=== PATIENT | male | born 1970 | race Caucasian/White ===

== ENCOUNTER 2017-01-27 08:14 | Emergency (ER) | payer BC ==
[~2017-01-27] VITALS: Ht 193 cm; Wt 96.0 kg
[~2017-01-27 08:14] MED LIST: CLEOCIN300 MG PO; COLACE100 MG PO; ENDOCET 5-3251 EACH PO; FLAGYL250 MG PO; GLIPIZIDE10 MG PO; GLIPIZIDE5 MG PO; GLUCOTROL10 MG PO; GLUCOTROL5 MG PO; KEFLEX500 MG PO; LEVAQUIN500 MG PO; LISINOPRIL5 MG PO; LOFIBRA,TRIGLI160 MG PO; LORTAB 5-325 M1 EACH PO; METFORMIN HCL1000 MG PO; PERCOCET 5/31 TABLET PO; PRAVASTATIN SOD40 MG PO; PRINIVIL5 MG PO; ROCEPHIN IV; ROCEPHIN2 GM/50 ML IV; TAMIFLU75 MG PO; TYLENOL EXTRA500 MG PO; VANCOMYCIN1 GM/150 M IV; ZYVOX600 MG PO
[2017-01-27 10:36] LABS: EOSINOPHIL (%) 2.3 % (0-5); EOSINOPHIL COUNT 0.1 K/uL (0-0.3); HEMATOCRIT 42.1 % (38.0-50.0); IMMATURE GRANULOCYTE (%) 0.4 % (0.0-0.7); INSTRUMENT ABS NEUTROPHIL CT 3.4 K/uL; LYMPHOCYTE COUNT 0.7 K/uL (1.0-2.8); MCH 29.1 PG (29.0-34.0); MCV 88.1 FL (86-99); MEAN PLAT.VOLUME 10.1 uM^3 (9.0-12.4); MONOCYTE (%) 9.7 % (3-12); MONOCYTE COUNT 0.5 K/uL (0-0.8); NEUTROPHIL (%) 72.4 % (45-76); NEUTROPHIL COUNT 3.4 K/uL (1.8-6.4); PLATELET COUNT 232 K/uL (156-360); RBC DIS.WIDTH-CV 11.5 % (11.8-14.6); RBC DIS.WIDTH-SD 37.1 % (39-53); RED BLOOD COUNT 4.78 M/uL (4.00-5.50); WHITE BLOOD COUNT 4.7 K/uL (4.1-10.2)
[2017-01-27 10:45] LABS: CHLORIDE 100 mEq/L (99-109); POTASSIUM 4.3 mEq/L (3.7-5.4); SODIUM 135 mEq/L (136-147)
[2017-01-27 10:47] LABS: GLUCOSE 344 mg/dL (70-99)
[2017-01-27 10:48] LABS: ANION GAP 10 MEQ/L (2-14)
[2017-01-27 10:51] LABS: GFR ESTIMATE (CALCULATED) > 59 mL/min/
[2017-01-27 10:52] LABS: UREA NITROGEN (BUN) 15 mg/dL (9-23)
[2017-01-27 13:48] VITALS: BP 135/95
== END 2017-01-27 13:48 | disposition home or self-care (01) ==
LOC: EME 08:14
PROVIDERS: Physician Assistant
DX: E11.621 Type 2 diabetes mellitus with foot ulcer (principal); L97.519 Non-pressure chronic ulcer of other part of right foot with unspecified severity; Z86.14 Personal history of Methicillin resistant Staphylococcus aureus infection; Z89.429 Acquired absence of other toe(s), unspecified side; Z88.0 Allergy status to penicillin; Z88.2 Allergy status to sulfonamides
CPT/HCPCS: 73630; 80048; 85025; 99281; 99284; J7050

== ENCOUNTER 2017-03-24 11:06 | Inpatient (IN) | payer BC ==
[~2017-03-24] VITALS: Ht 193 cm; Wt 91.2 kg
[2017-03-24 11:31] LABS: POINT-OF-CARE METER ID UU13113778
[2017-03-24 12:00] LABS: HEMATOCRIT 36.9 % (38.0-50.0); MCH 29.4 PG (29.0-34.0); MCHC 33.6 G/DL (30.0-36.0); MCV 87.4 FL (86-99); MEAN PLAT.VOLUME 9.8 uM^3 (9.0-12.4); PLATELET COUNT 265 K/uL (156-360); RBC DIS.WIDTH-CV 11.9 % (11.8-14.6); RBC DIS.WIDTH-SD 38.5 % (39-53); RED BLOOD COUNT 4.22 M/uL (4.00-5.50); WHITE BLOOD COUNT 7.6 K/uL (4.1-10.2)
[2017-03-24 12:30] LABS: CHLORIDE 100 mEq/L (99-109); POTASSIUM 3.8 mEq/L (3.7-5.4); SODIUM 134 mEq/L (136-147)
[2017-03-24 12:33] LABS: GLUCOSE 267 mg/dL (70-99)
[2017-03-24 12:34] LABS: ANION GAP 21 MEQ/L (2-14)
[2017-03-24 12:35] LABS: TOTAL BILIRUBIN 0.4 mg/dL (0.0-1.0)
[2017-03-24 12:36] LABS: ALKALINE PHOSPHATASE 108 IU/L (3-129); GFR ESTIMATE (CALCULATED) > 59 mL/min/
[2017-03-24 12:37] LABS: UREA NITROGEN (BUN) 17 mg/dL (9-23)
[2017-03-24 13:53] LABS: SAMPLE HEMOLYSIS CHECK 0; SAMPLE ICTERIC CHECK 0; SAMPLE LIPEMIA CHECK 0
[2017-03-24 14:07] LABS: CARBON DIOXIDE (BICARBONATE) 15.8 MEQ/L (20-31)
[2017-03-24 16:56] LABS: CHLORIDE 104 mEq/L (99-109); POTASSIUM 4.2 mEq/L (3.7-5.4); SODIUM 135 mEq/L (136-147)
[2017-03-24 16:57] LABS: GLUCOSE 249 mg/dL (70-99)
[2017-03-24 16:59] LABS: ANION GAP 17 MEQ/L (2-14)
[2017-03-24] MEDS ORDERED: TYLENOL EXTRA500 MG PO (17:00)
[2017-03-24 17:01] LABS: GFR ESTIMATE (CALCULATED) > 59 mL/min/
[2017-03-24 17:02] LABS: UREA NITROGEN (BUN) 15 mg/dL (9-23)
[2017-03-24 19:00] LABS: ADD MIUA? NO; BILIRUBIN NEGATIVE; BLOOD NEGATIVE; COLOR YELLOW ((YELLOW)); GLUCOSE (STRIP) >=500; KETONES 80; LEUKOCYTES NEGATIVE; NITRITE NEGATIVE; PROTEIN (STRIP) 30; SPECIFIC GRAVITY 1.023 (1.000-1.030); UCUL ADDED? NO; UROBILINOGEN 0.2 MG/DL (0.2-1.0)
[2017-03-24 19:58] LABS: ALKALINE PHOSPHATASE 89 IU/L (3-129)
[2017-03-24 20:01] LABS: DIRECT BILIRUBIN 0.2 mg/dL (0.0-0.3)
[2017-03-24 20:02] LABS: LIPASE 9 U/L (1.0-51.0)
[2017-03-24 20:03] LABS: TOTAL BILIRUBIN 0.2 mg/dL (0.0-1.0)
[2017-03-24 20:30] VITALS: BP 138/77
[2017-03-24 20:44] LABS: C-REACTIVE PROTEIN 157.6 MG/L (0-10)
[2017-03-24 20:46] LABS: ERTH.SED.RATE 113 MM/HR (0-15)
[2017-03-24 21:14] VITALS: BP 138/77
[2017-03-24 21:24] LABS: ANION GAP 17 MEQ/L (2-14); CHLORIDE 104 MEQ/L (99-109); GFR ESTIMATE (CALCULATED) > 59 mL/min/; GLUCOSE 218 mg/dL (70-99); POTASSIUM 4.2 MEQ/L (3.7-5.4); SAMPLE HEMOLYSIS CHECK 0; SAMPLE ICTERIC CHECK 0; SAMPLE LIPEMIA CHECK 0; SODIUM 134 MEQ/L (136-147); UREA NITROGEN (BUN) 14 mg/dL (9-23)
[2017-03-24 21:31] LABS: Estimated Average Glucose 272 mg/dL (70-123); HEMOGLOBIN A1c (GLYCOHEMOGLOB) 11.1 % HGB (Below 5.7)
[2017-03-24 21:41] LABS: POINT-OF-CARE METER ID UU13113781
[2017-03-24 22:41] LABS: METH RESISTANT S AUREUS PCR NEGATIVE (NEGATIVE)
[2017-03-24 22:47] LABS: PROBE CHECK PASS; SPECIMEN PROCESSING CONTROL PASS
[2017-03-24 22:59] LABS: BASE EXCESS -10.3 mEq/L (-3 to +3); BICARBONATE 13.3 mEq/L (22-26); COMMENTS - BLOOD GASES C+; METHEMOGLOBIN 0.9 % (0-1.5); MODE ROOM AIR; PCO2 23 mm Hg (35-45); PO2 95 mm Hg (80-100); SITE LR; TOTAL RESP RATE 20 resp/min; pH 7.37 (7.35-7.45)
[2017-03-24 23:55] VITALS: BP 122/63
[2017-03-25 04:00] VITALS: BP 137/79
[2017-03-25 05:25] LABS: EOSINOPHIL (%) 0.2 % (0-5); HEMATOCRIT 31.2 % (38.0-50.0); IMMATURE GRANULOCYTE (%) 0.7 % (0.0-0.7); INSTRUMENT ABS NEUTROPHIL CT 3.6 K/uL; LYMPHOCYTE COUNT 0.4 K/uL (1.0-2.8); MCH 29.8 PG (29.0-34.0); MCHC 33.3 G/DL (30.0-36.0); MCV 89.4 FL (86-99); MEAN PLAT.VOLUME 9.9 uM^3 (9.0-12.4); MONOCYTE (%) 8.1 % (3-12); MONOCYTE COUNT 0.4 K/uL (0-0.8); NEUTROPHIL (%) 81.4 % (45-76); NEUTROPHIL COUNT 3.6 K/uL (1.8-6.4); PLATELET COUNT 226 K/uL (156-360); RBC DIS.WIDTH-CV 12.2 % (11.8-14.6); RBC DIS.WIDTH-SD 39.3 % (39-53); RED BLOOD COUNT 3.49 M/uL (4.00-5.50); WHITE BLOOD COUNT 4.5 K/uL (4.1-10.2)
[2017-03-25 05:35] LABS: ANION GAP 13 MEQ/L (2-14); CHLORIDE 107 MEQ/L (99-109); GFR ESTIMATE (CALCULATED) > 59 mL/min/; GLUCOSE 168 mg/dL (70-99); POTASSIUM 4.2 MEQ/L (3.7-5.4); SAMPLE HEMOLYSIS CHECK 0; SAMPLE ICTERIC CHECK 0; SAMPLE LIPEMIA CHECK 0; SODIUM 135 MEQ/L (136-147); UREA NITROGEN (BUN) 12 mg/dL (9-23)
[2017-03-25 08:14] VITALS: BP 128/68
[2017-03-25 11:48] LABS: POINT-OF-CARE USER ID ENVKC36
[2017-03-25 12:47] VITALS: BP 137/73
[2017-03-25 14:44] LABS: POINT-OF-CARE METER ID UU13113803; POINT-OF-CARE USER ID ENVKC36
[2017-03-25 17:07] VITALS: BP 119/58
[2017-03-25 18:04] LABS: POINT-OF-CARE USER ID ENVKC36
[2017-03-25 20:00] VITALS: BP 137/67
[2017-03-25 23:55] VITALS: BP 149/86
[2017-03-26 02:24] LABS: POINT-OF-CARE METER ID UU13113675
[2017-03-26 02:49] VITALS: BP 154/76
[2017-03-26 04:00] VITALS: BP 147/72
[2017-03-26 07:14] LABS: EOSINOPHIL (%) 2.1 % (0-5); EOSINOPHIL COUNT 0.1 K/uL (0-0.3); HEMATOCRIT 30.5 % (38.0-50.0); IMMATURE GRANULOCYTE (%) 0.9 % (0.0-0.7); INSTRUMENT ABS NEUTROPHIL CT 2.4 K/uL; LYMPHOCYTE COUNT 0.4 K/uL (1.0-2.8); MCH 29.1 PG (29.0-34.0); MCHC 33.4 G/DL (30.0-36.0); MCV 86.9 FL (86-99); MEAN PLAT.VOLUME 9.5 uM^3 (9.0-12.4); MONOCYTE (%) 13.1 % (3-12); MONOCYTE COUNT 0.4 K/uL (0-0.8); NEUTROPHIL COUNT 2.4 K/uL (1.8-6.4); PLATELET COUNT 227 K/uL (156-360); RBC DIS.WIDTH-CV 11.9 % (11.8-14.6); RBC DIS.WIDTH-SD 38.5 % (39-53); RED BLOOD COUNT 3.51 M/uL (4.00-5.50); WHITE BLOOD COUNT 3.4 K/uL (4.1-10.2)
[2017-03-26 07:26] LABS: POINT-OF-CARE METER ID UU13113781
[2017-03-26 07:45] LABS: ANION GAP 8 MEQ/L (2-14); CHLORIDE 103 MEQ/L (99-109); GFR ESTIMATE (CALCULATED) > 59 mL/min/; GLUCOSE 155 mg/dL (70-99); POTASSIUM 3.5 MEQ/L (3.7-5.4); SAMPLE HEMOLYSIS CHECK 0; SAMPLE ICTERIC CHECK 0; SAMPLE LIPEMIA CHECK 0; SODIUM 133 MEQ/L (136-147); UREA NITROGEN (BUN) 8 mg/dL (9-23)
[2017-03-26 07:57] VITALS: BP 145/77
[2017-03-26 10:23] LABS: POINT-OF-CARE METER ID UU13113781
[2017-03-26 11:27] VITALS: BP 122/68
[2017-03-26 14:15] LABS: POINT-OF-CARE METER ID UU13113698
[2017-03-26 20:00] VITALS: BP 118/58
[2017-03-26 23:55] VITALS: BP 133/71
[2017-03-27 04:00] VITALS: BP 133/74
[2017-03-27 05:52] LABS: HEMATOCRIT 33.4 % (38.0-50.0); MCH 28.1 PG (29.0-34.0); MCHC 32.3 G/DL (30.0-36.0); MCV 86.8 FL (86-99); MEAN PLAT.VOLUME 9.8 uM^3 (9.0-12.4); PLATELET COUNT 248 K/uL (156-360); RBC DIS.WIDTH-SD 38.4 % (39-53); RED BLOOD COUNT 3.85 M/uL (4.00-5.50); WHITE BLOOD COUNT 3.3 K/uL (4.1-10.2)
[2017-03-27 06:20] LABS: ANION GAP 7 MEQ/L (2-14); CHLORIDE 104 MEQ/L (99-109); GFR ESTIMATE (CALCULATED) > 59 mL/min/; GLUCOSE 99 mg/dL (70-99); POTASSIUM 3.3 MEQ/L (3.7-5.4); SAMPLE HEMOLYSIS CHECK 0; SAMPLE ICTERIC CHECK 0; SAMPLE LIPEMIA CHECK 0; SODIUM 138 MEQ/L (136-147); UREA NITROGEN (BUN) 7 mg/dL (9-23)
[2017-03-27 07:08] LABS: ABS NEUTROPHIL COUNT 1.7; ATYPICAL LYMPHOCYTE 3.5 %; BAND NEUTROPHILS 2.6 % (0-8.0); BASOPHILS 0.9 %; EOSINOPHIL ABS CT 0.1; EOSINOPHILS 3.5 % (0-5.0); INSTRUMENT ABS NEUTROPHIL CT 1.4 K/uL; LYMPHOCYTES 28.7 % (15.0-45.0); SEG.NEUTROPHILS 47.8 % (46.0-76.0); SMUDGE CELLS 2.6
[2017-03-27 07:15] VITALS: BP 133/81
[2017-03-27 11:55] VITALS: BP 124/78
[2017-03-27 19:45] VITALS: BP 124/69
[2017-03-28 01:45] LABS: GFR ESTIMATE (CALCULATED) > 59 mL/min/
[2017-03-28 02:05] LABS: POINT-OF-CARE METER ID UU13113803
[2017-03-28 02:42] LABS: VANCOMYCIN, TROUGH 16.1 MCG/ML (10-20)
[2017-03-28 04:53] LABS: EOSINOPHIL (%) 4.2 % (0-5); EOSINOPHIL COUNT 0.2 K/uL (0-0.3); HEMATOCRIT 32.6 % (38.0-50.0); IMMATURE GRANULOCYTE (%) 0.3 % (0.0-0.7); MCH 28.3 PG (29.0-34.0); MCHC 32.2 G/DL (30.0-36.0); MCV 87.9 FL (86-99); MEAN PLAT.VOLUME 10.5 uM^3 (9.0-12.4); MONOCYTE (%) 11.3 % (3-12); MONOCYTE COUNT 0.4 K/uL (0-0.8); NEUTROPHIL (%) 56.6 % (45-76); PLATELET COUNT 243 K/uL (156-360); RBC DIS.WIDTH-CV 11.9 % (11.8-14.6); RBC DIS.WIDTH-SD 38.2 % (39-53); RED BLOOD COUNT 3.71 M/uL (4.00-5.50); WHITE BLOOD COUNT 3.6 K/uL (4.1-10.2)
[2017-03-28 06:27] LABS: POINT-OF-CARE METER ID UU13113803
[2017-03-28 06:56] LABS: ANION GAP 9 MEQ/L (2-14); CHLORIDE 102 MEQ/L (99-109); SAMPLE HEMOLYSIS CHECK 0; SAMPLE ICTERIC CHECK 0; SAMPLE LIPEMIA CHECK 0; SODIUM 136 MEQ/L (136-147)
[2017-03-28 07:01] LABS: UREA NITROGEN (BUN) 9 mg/dL (9-23)
[2017-03-28 07:04] LABS: GLUCOSE 196 mg/dL (70-99)
[2017-03-28 07:59] VITALS: BP 145/83
[2017-03-28 10:52] LABS: POINT-OF-CARE METER ID UU13113698
[2017-03-28 11:52] VITALS: BP 126/80
[2017-03-28 16:22] LABS: POINT-OF-CARE METER ID UU13113698
[2017-03-28 18:09] LABS: POINT-OF-CARE METER ID UU13113803
[2017-03-28 19:20] VITALS: BP 136/80
[2017-03-28 21:44] LABS: POINT-OF-CARE METER ID UU13113803
[2017-03-29 04:05] VITALS: BP 123/73
[2017-03-29 05:33] LABS: HEMATOCRIT 32.3 % (38.0-50.0); MCH 27.9 PG (29.0-34.0); MCHC 31.9 G/DL (30.0-36.0); MCV 87.5 FL (86-99); MEAN PLAT.VOLUME 9.7 uM^3 (9.0-12.4); PLATELET COUNT 255 K/uL (156-360); RBC DIS.WIDTH-SD 38.8 % (39-53); RED BLOOD COUNT 3.69 M/uL (4.00-5.50); WHITE BLOOD COUNT 4.1 K/uL (4.1-10.2)
[2017-03-29 06:08] LABS: EOSINOPHIL (%) 4.2 % (0-5); EOSINOPHIL COUNT 0.2 K/uL (0-0.3); IMMATURE GRANULOCYTE (%) 0.2 % (0.0-0.7); LYMPHOCYTE COUNT 1.4 K/uL (1.0-2.8); MONOCYTE (%) 10.6 % (3-12); MONOCYTE COUNT 0.4 K/uL (0-0.8); NEUTROPHIL (%) 49.3 % (45-76)
[2017-03-29 06:09] LABS: ANION GAP 7 MEQ/L (2-14); CHLORIDE 103 MEQ/L (99-109); GFR ESTIMATE (CALCULATED) > 59 mL/min/; POTASSIUM 3.5 MEQ/L (3.7-5.4); SAMPLE HEMOLYSIS CHECK 0; SAMPLE ICTERIC CHECK 0; SAMPLE LIPEMIA CHECK 0; SODIUM 139 MEQ/L (136-147); UREA NITROGEN (BUN) 8 mg/dL (9-23)
[2017-03-29 06:13] LABS: GLUCOSE 114 mg/dL (70-99)
[2017-03-29 07:59] VITALS: BP 121/70
[2017-03-29 08:07] LABS: POINT-OF-CARE METER ID UU13113698
[2017-03-29 12:01] LABS: POINT-OF-CARE METER ID UU13113698
[2017-03-29 15:53] VITALS: BP 129/82
[2017-03-29 16:38] LABS: POINT-OF-CARE METER ID UU13113698
[2017-03-29 18:05] VITALS: BP 138/84
[2017-03-29 19:50] VITALS: BP 122/76
[2017-03-29 21:27] LABS: POINT-OF-CARE METER ID UU14208750
[2017-03-30 03:43] VITALS: BP 124/73
[2017-03-30 07:15] VITALS: BP 131/83
[2017-03-30 07:54] LABS: POINT-OF-CARE METER ID UU14208750
[2017-03-30 12:37] LABS: POINT-OF-CARE METER ID UU14162508
[2017-03-30 14:32] VITALS: BP 133/75
[2017-03-30 16:11] LABS: POINT-OF-CARE METER ID UU13113675
[2017-03-30 16:50] VITALS: BP 126/80
[2017-03-30 20:00] VITALS: BP 131/77
[2017-03-30 21:46] LABS: POINT-OF-CARE METER ID UU14162508
[2017-03-30 23:40] VITALS: BP 117/70
[2017-03-31 03:29] VITALS: BP 115/69
[2017-03-31 05:53] LABS: HEMATOCRIT 34.2 % (38.0-50.0); MCH 28.6 PG (29.0-34.0); MCHC 32.2 G/DL (30.0-36.0); MCV 89.1 FL (86-99); MEAN PLAT.VOLUME 9.1 uM^3 (9.0-12.4); PLATELET COUNT 295 K/uL (156-360); RBC DIS.WIDTH-CV 12.1 % (11.8-14.6); RBC DIS.WIDTH-SD 39.2 % (39-53); RED BLOOD COUNT 3.84 M/uL (4.00-5.50); WHITE BLOOD COUNT 5.1 K/uL (4.1-10.2)
[2017-03-31 06:36] LABS: POINT-OF-CARE METER ID UU14162508
[2017-03-31 07:13] LABS: ANION GAP 8 MEQ/L (2-14); CHLORIDE 103 MEQ/L (99-109); GFR ESTIMATE (CALCULATED) > 59 mL/min/; GLUCOSE 142 mg/dL (70-99); SAMPLE HEMOLYSIS CHECK 1; SAMPLE ICTERIC CHECK 0; SAMPLE LIPEMIA CHECK 0; SODIUM 137 MEQ/L (136-147); UREA NITROGEN (BUN) 12 mg/dL (9-23)
[2017-03-31 07:17] LABS: POTASSIUM 4.6 MEQ/L (3.7-5.4)
[2017-03-31 07:50] VITALS: BP 118/67
[2017-03-31 11:57] LABS: POINT-OF-CARE METER ID UU14162508
[2017-03-31 15:50] VITALS: BP 136/81
[2017-03-31 16:49] LABS: POINT-OF-CARE METER ID UU14162508
[2017-03-31 19:03] VITALS: BP 128/77
[2017-03-31 20:17] LABS: POINT-OF-CARE METER ID UU14208750
[2017-03-31 23:20] VITALS: BP 120/72
[2017-04-01 03:21] VITALS: BP 125/75
[2017-04-01 06:21] LABS: POINT-OF-CARE METER ID UU14208750
[2017-04-01 08:00] VITALS: BP 125/78
[2017-04-01 12:15] LABS: POINT-OF-CARE METER ID UU14208750
[2017-04-01 15:55] VITALS: BP 127/77
[2017-04-01 16:15] LABS: POINT-OF-CARE METER ID UU14208750
[2017-04-01 21:39] LABS: POINT-OF-CARE METER ID UU14208750
[2017-04-01 22:56] VITALS: BP 133/63
[2017-04-02 06:05] LABS: POINT-OF-CARE METER ID UU14208750
[2017-04-02 07:32] VITALS: BP 140/72
[2017-04-02 08:08] LABS: GFR ESTIMATE (CALCULATED) > 59 mL/min/; UREA NITROGEN (BUN) 13 mg/dL (9-23)
[2017-04-02] MEDS ORDERED: LANTUS 3 M100 UNITS1 SC (10:42)
[2017-04-02] MEDS ORDERED: AMLODIPINE BESYL5 MG PO (10:42)
[2017-04-02 11:26] VITALS: BP 121/72
[2017-04-02 11:38] LABS: POINT-OF-CARE METER ID UU14162508
[2017-04-02] MEDS ORDERED: LEVEMIR FL100 UNIT/1 SC (12:42)
== END 2017-04-02 15:07 | disposition home health service (06) | DRG 503 ==
LOC: EME 11:06 → EDOF 19:03 → ENRESERV 19:07 → 4EAST 20:34 → ENRESERV 03-29 15:51 → 2EAST 03-29 17:57
PROVIDERS: Emergency Medicine; Hospitalist; Internal Medicine; Physician Assistant
DX: M86.172 Other acute osteomyelitis, left ankle and foot (principal); A40.9 Streptococcal sepsis, unspecified; E13.10 Other specified diabetes mellitus with ketoacidosis without coma; M86.672 Other chronic osteomyelitis, left ankle and foot; L97.529 Non-pressure chronic ulcer of other part of left foot with unspecified severity; L03.116 Cellulitis of left lower limb; R63.4 Abnormal weight loss; E87.6 Hypokalemia; E86.0 Dehydration; I73.9 Peripheral vascular disease, unspecified; L02.612 Cutaneous abscess of left foot; A49.02 Methicillin resistant Staphylococcus aureus infection, unspecified site; M14.679 Charcot's joint, unspecified ankle and foot; I10 Essential (primary) hypertension; E78.5 Hyperlipidemia, unspecified; Z89.422 Acquired absence of other left toe(s); Z91.19 Patient's noncompliance with other medical treatment and regimen; Z86.14 Personal history of Methicillin resistant Staphylococcus aureus infection; Z79.4 Long term (current) use of insulin; Z88.0 Allergy status to penicillin; Z83.3 Family history of diabetes mellitus; Z82.49 Family history of ischemic heart disease and other diseases of the circulatory system
CPT/HCPCS: 36600; 71010; 73630; 80048; 80048 91; 80053; 80076; 80202; 81003; 82010; 82565; 82803; 82948; 83036; 83605; 83690; 84443; 84520; 85025; 85027; 85651; 86140; 87040; 87070; 87075; 87076; 87077; 87147; 87185; 87186; 87205; 87641; 87801; 88304; 88311; 99281; 99285; J0692; J0696; J1100; J1200; J1650; J1815; J1956; J2250; J2405; J3010; J3370; J7030; J7050; J7120; S0020

== ENCOUNTER → 2017-05-11 | Outpatient (CLI) | payer BC ==
[~2017-05-11] MED LIST changes: +AMLODIPINE BESYL5 MG PO; +DOXYCYCLINE HY100 M3 PO; +LANTUS 3 M100 UNITS1 SC; +LEVAQUIN750 MG PO; +LEVEMIR FL100 UNIT/1 SC
== END | disposition home or self-care (01) ==
LOC: CDC 08:27
DX: Z01.810 Encounter for preprocedural cardiovascular examination (principal); E11.42 Type 2 diabetes mellitus with diabetic polyneuropathy; M86.672 Other chronic osteomyelitis, left ankle and foot; L03.116 Cellulitis of left lower limb
CPT/HCPCS: 93000

== ENCOUNTER 2017-05-12 10:28 | Day surgery (SDC) | payer BC ==
[~2017-05-12] VITALS: Ht 193 cm; Wt 99.3 kg
[2017-05-12 11:10] LABS: POINT-OF-CARE METER ID UU14174212
[2017-05-12 11:23] VITALS: BP 142/88
[2017-05-12 15:04] LABS: POINT-OF-CARE METER ID UU13113675
[2017-05-12 15:45] VITALS: BP 132/91
== END 2017-05-12 16:50 | disposition home or self-care (01) ==
LOC: SDC 10:28
PROVIDERS: Podiatrist Foot & Ankle Surgery
DX: M86.8X7 Other osteomyelitis, ankle and foot (principal); E11.42 Type 2 diabetes mellitus with diabetic polyneuropathy; E11.628 Type 2 diabetes mellitus with other skin complications; E11.65 Type 2 diabetes mellitus with hyperglycemia; L02.612 Cutaneous abscess of left foot; L03.116 Cellulitis of left lower limb; I10 Essential (primary) hypertension; Z88.0 Allergy status to penicillin; Z88.2 Allergy status to sulfonamides; Z79.4 Long term (current) use of insulin
CPT/HCPCS: 73630; 82948; 87070; 87075; 87205; 88305; 88311; J2250; J2405; J3010; J3370; S0020

== ENCOUNTER 2017-08-04 10:35 | Emergency (ER) | payer OTHER, BC ==
[~2017-08-04] VITALS: Ht 182.9 cm; Wt 108.5 kg
[2017-08-04] MEDS ORDERED: ULTRACET1 TABLET PO (13:35)
[2017-08-04 13:53] VITALS: BP 126/92
== END 2017-08-04 14:08 | disposition home or self-care (01) ==
LOC: EME 10:35
DX: S93.602A Unspecified sprain of left foot, initial encounter (principal); M25.572 Pain in left ankle and joints of left foot; X50.1XXA Overexertion from prolonged static or awkward postures, initial encounter; Y99.0 Civilian activity done for income or pay; Z89.429 Acquired absence of other toe(s), unspecified side
CPT/HCPCS: 73610; 73630; 99281; 99283

== ENCOUNTER 2017-08-05 12:48 | Emergency (ER) | payer BC, OTHER ==
[~2017-08-05] VITALS: Ht 182.9 cm; Wt 106.2 kg
[~2017-08-05 12:48] MED LIST changes: +ULTRACET1 TABLET PO
[2017-08-05 18:06] LABS: HEMATOCRIT 45.8 % (38.0-50.0); HEMOGLOBIN 15.2 G/DL (12.5-16.6); MCH 29.8 PG (29.0-34.0); MCHC 33.2 G/DL (30.0-36.0); MCV 89.8 FL (86-99); PLATELET COUNT 200 K/uL (156-360); RBC DIS.WIDTH-CV 13.2 % (11.8-14.6); RBC DIS.WIDTH-SD 43.4 % (39-53); WHITE BLOOD COUNT 4.2 K/uL (4.1-10.2)
[2017-08-05 18:17] LABS: CHLORIDE 106 mEq/L (99-109); POTASSIUM 4.1 mEq/L (3.7-5.4); SODIUM 137 mEq/L (136-147)
[2017-08-05 18:19] LABS: GLUCOSE 95 mg/dL (70-99)
[2017-08-05 18:22] LABS: GFR ESTIMATE (CALCULATED) > 59 mL/min/ (58.99-99999)
[2017-08-05 18:23] LABS: UREA NITROGEN (BUN) 19 mg/dL (9-23)
[2017-08-05 18:29] LABS: TROP-I INTERPRETATION NEGATIVE; TROPONIN-I < 0.01 ng/mL (0.0-0.30)
[2017-08-05 20:00] VITALS: BP 149/73
== END 2017-08-05 20:24 | disposition home or self-care (01) ==
LOC: EME 12:48
PROVIDERS: Nurse Practitioner Family
DX: R51 Headache (principal); E11.9 Type 2 diabetes mellitus without complications; I10 Essential (primary) hypertension; Z88.2 Allergy status to sulfonamides; Z88.0 Allergy status to penicillin
CPT/HCPCS: 70450; 80048; 82948; 84484; 85027; 93005; 99281; 99285; J1885

== ENCOUNTER 2018-01-08 17:16 | Emergency (ER) | payer BC ==
[~2018-01-08] VITALS: Ht 193 cm; Wt 112.5 kg
[2018-01-08 18:09] LABS: HEMATOCRIT 43.1 % (38.0-50.0); HEMOGLOBIN 14.8 G/DL (12.5-16.6); MCH 30.5 PG (29.0-34.0); MCHC 34.3 G/DL (30.0-36.0); MCV 88.9 FL (86-99); PLATELET COUNT 149 K/uL (156-360); RBC DIS.WIDTH-CV 12.7 % (11.8-14.6); RBC DIS.WIDTH-SD 41.5 % (39-53); RED BLOOD COUNT 4.85 M/uL (4.00-5.50); WHITE BLOOD COUNT 8.5 K/uL (4.1-10.2)
[2018-01-08 18:12] LABS: CARBON DIOXIDE (BICARBONATE) 27.1 MEQ/L (20-31)
[2018-01-08 18:20] LABS: CHLORIDE 102 mEq/L (99-109); POTASSIUM 4.2 mEq/L (3.7-5.4); SODIUM 136 mEq/L (136-147)
[2018-01-08 18:22] LABS: GLUCOSE 158 mg/dL (70-99); TOTAL PROTEIN 7.4 g/dL (6.4-8.3)
[2018-01-08 18:26] LABS: ALKALINE PHOSPHATASE 94 IU/L (3-129); GFR ESTIMATE (CALCULATED) > 59 mL/min/ (58.99-99999)
[2018-01-08 18:27] LABS: UREA NITROGEN (BUN) 17 mg/dL (9-23)
[2018-01-08 18:28] LABS: AST (GOT) 28 IU/L (2-34)
[2018-01-08 18:29] LABS: ALT (GPT) 23 IU/L (3-49); LIPASE 7 U/L (1.0-51.0)
[2018-01-08 20:15] LABS: APPEARANCE CLEAR ((CLEAR)); BILIRUBIN NEGATIVE; BLOOD SMALL; COLOR YELLOW ((YELLOW)); GLUCOSE (STRIP) 150; KETONES 20; LEUKOCYTES NEGATIVE; NITRITE NEGATIVE; PROTEIN (STRIP) 100; SPECIFIC GRAVITY 1.026 (1.000-1.030); UROBILINOGEN 0.2 MG/DL (0.2-1.0)
[2018-01-08 20:27] LABS: BACTERIA NONE SEEN /HPF; EPITHELIAL CELLS RARE /HPF; MUCUS 1+ /LPF; RED BLOOD CELLS 0-5 /HPF (0-5); UCUL ADDED? NO; WHITE BLOOD CELLS 0-5 /HPF (0-5)
[2018-01-08 20:50] VITALS: BP 143/78
[2018-01-09] MEDS ORDERED: ZOFRAN4 MG PO (14:32)
[2018-01-09] MEDS ORDERED: LEVAQUIN750 MG PO (14:32)
== END 2018-01-08 20:51 | disposition home or self-care (01) ==
LOC: EME 17:16
PROVIDERS: Physician Assistant
DX: R50.9 Fever, unspecified (principal); R11.2 Nausea with vomiting, unspecified; I10 Essential (primary) hypertension; E11.9 Type 2 diabetes mellitus without complications; Z79.4 Long term (current) use of insulin; Z88.0 Allergy status to penicillin; Z88.2 Allergy status to sulfonamides
CPT/HCPCS: 80053; 81003; 82010; 82803; 83690; 85027; 99281; 99284; J2405; J7030; S0028

== ENCOUNTER 2018-01-09 10:50 | Emergency (ER) | payer BC ==
[~2018-01-09] VITALS: Ht 193 cm; Wt 112.5 kg
[2018-01-09 11:18] LABS: HEMATOCRIT 41.3 % (38.0-50.0); HEMOGLOBIN 14.5 G/DL (12.5-16.6); MCH 31.1 PG (29.0-34.0); MCHC 35.1 G/DL (30.0-36.0); MCV 88.6 FL (86-99); PLATELET COUNT 121 K/uL (156-360); RBC DIS.WIDTH-CV 12.5 % (11.8-14.6); RBC DIS.WIDTH-SD 40.9 % (39-53); RED BLOOD COUNT 4.66 M/uL (4.00-5.50); WHITE BLOOD COUNT 3.6 K/uL (4.1-10.2)
[2018-01-09 11:28] LABS: CHLORIDE 102 mEq/L (99-109); POTASSIUM 3.9 mEq/L (3.7-5.4); SODIUM 137 mEq/L (136-147)
[2018-01-09 11:30] LABS: GLUCOSE 202 mg/dL (70-99)
[2018-01-09 11:34] LABS: CREATININE 1.1 mg/dL (0.6-1.3); GFR ESTIMATE (CALCULATED) > 59 mL/min/ (58.99-99999); UREA NITROGEN (BUN) 17 mg/dL (9-23)
[2018-01-09] MEDS ORDERED: LEVAQUIN750 MG PO (14:32)
[2018-01-09] MEDS ORDERED: ZOFRAN4 MG PO (14:32)
[2018-01-09 15:00] VITALS: BP 127/73
== END 2018-01-09 16:37 | disposition home or self-care (01) ==
LOC: EME 10:50
DX: J18.9 Pneumonia, unspecified organism (principal); I10 Essential (primary) hypertension; Z88.2 Allergy status to sulfonamides; Z88.0 Allergy status to penicillin
CPT/HCPCS: 71046; 80048; 83605; 85027; 87040; 93005; 99281; 99285; J1956; J2405